=== PATIENT | male | born 1990 ===

== ENCOUNTER 2017-06-30 19:36 | Observation (INO) | payer SELFPAY ==
[2017-06-30 19:45] VITALS: RESP 18
[2017-06-30] MEDS ORDERED: Dexamethasone 4 mg/1 ml IVP STA (20:13)
[2017-06-30] MEDS ORDERED: Sodium Chloride 0.9% 1,000 ML IV STA ×2 (20:13→21:20)
--- NOTE | 2017-06-30 20:32 | ED PDOC ---
HPI:Nausea, Vomiting, Diarrhea Time Seen by Provider: 06/30/17 20:01 Chief Complaint (Nursing): GI Problem Chief Complaint (Provider): Sore throat, fever, nausea, vomiting, diarrhea History Per: Patient History/Exam Limitations: no limitations Additional Complaint(s): Patient is a 27 year old male presenting to the emergency department for a subjective fever and chills that began 5 days ago with associated difficulty swallowing, malaise, tooth and body aches, nausea, vomiting, diarrhea, and a returning sore throat. Notes that he saw his doctor yesterday and took amoxcillion as prescribed, after which his GI symptoms occurred. Denies any sick contacts, recent travel, smoking, or any significant medical and family history. PCP at [facility]. Past Medical History Reviewed: Historical Data, Nursing Documentation, Vital Signs Vital Signs: Last Vital Signs Temp 102.5 F H 06/30/17 19:43 Pulse 106 H 06/30/17 19:43 Resp 18 06/30/17 19:43 BP 111/67 06/30/17 19:43 Pulse Ox 99 06/30/17 19:43 - Medical History PMH: No Chronic Diseases - Surgical History Surgical History: No Surg Hx - Family History Family History: States: No Known Family Hx - Social History Current smoker - smoking cessation education provided: No Ex-Smoker (has not smoked in the last 12 months): No Alcohol: None Drugs: Denies - Home Medications Home Medications: Ambulatory Orders Medication Instructions Recorded Ondansetron ODT [Zofran ODT] 1 odt PO Q6 PRN #20 odt 07/01/17 - Allergies Allergies/Adverse Reactions: Allergies Allergy/AdvReac Type Severity Reaction Status Date / Time No Known Allergies Allergy Verified 06/30/17 20:13 Review of Systems ROS Statement: Except As Marked, All Systems Reviewed And Found Negative (as per HPI) Constitutional: Positive for: Fever, Chills, Malaise, Other (Body ache) ENT: Positive for: Other (toothache and difficulty swallowing) Gastrointestinal: Positive for: Nausea, Vomiting, Diarrhea Physical Exam - Reviewed Nursing Documentation Reviewed: Yes Vital Signs Reviewed: Yes - Physical Exam Appears: Positive for: Non-toxic, In Acute Distress Head Exam: Positive for: ATRAUMATIC, NORMOCEPHALIC Skin: Positive for: Warm, Dry Eye Exam: Positive for: EOMI, PERRL ENT: Positive for: Pharyngeal Erythema, Tonsillar Exudate, Tonsillar Swelling, Other (dry muc membranes) Neck: Positive for: Painless ROM, Supple Cardiovascular/Chest: Positive for: Chest Non Tender, Tachycardia (regular rhythm). Negative for: Murmur Respiratory: Positive for: Normal Breath Sounds. Negative for: Wheezing, Respiratory Distress Gastrointestinal/Abdominal: Positive for: Soft. Negative for: Tenderness, Mass , Distended, Guarding Back: Positive for: Normal Inspection. Negative for: Decreased ROM Extremity: Positive for: Normal ROM. Negative for: Deformity Lymphatic: Positive for: Adenopathy Neurologic/Psych: Positive for: Alert. Negative for: Motor/Sensory Deficits - Laboratory Results Result Diagrams: 06/30/17 20:46 06/30/17 20:48 - ECG O2 Sat by Pulse Oximetry: 99 (RA) Pulse Ox Interpretation: Normal Medical Decision Making Medical Decision Making: Time: 20:29 Initial impression: Tonsillitis and dehydration Labs ED Urine Dipstick Blood Culture IV Insertion Dextrose 1 L, 100 mls/hr Decadron 10 mg IVP Normal Saline 1 L Zofran 8 mg IV Rocephin 1 gm Reevaluation Scribe Attestation: Documented by Meme Mcguire, acting as a scribe for Rubi Valdez MD. Provider Scribe Attestation: All medical record entries made by the Scribe were at my direction and personally dictated by me. I have reviewed the chart and agree that the record accurately reflects my personal performance of the history, physical exam, medical decision making, and the department course for this patient. I have also personally directed, reviewed, and agree with the discharge instructions and disposition. ED OBSERVATION - Observation admission statement Patient is being placed in observation because:: Observation for improvement of symptoms after large dose of IVF - Goals of Observation Goals of observation are:: Symptomatic improvement Hydration - Progress Note Progress Note: 2200 Pt comfortable. Feeling better. 2nd bolus pending 2300 Pt feels better. DW pt findings and plan of care. Advised to continue to rest but increase fluid intake. Disposition - Clinical Impression Clinical Impression: Tonsillitis, Rhabdomyolysis Counseled Patient/Family Regarding: Studies Performed, Diagnosis, Need For Followup - Disposition Disposition Time: 20:30 Condition: IMPROVED
[2017-06-30] MEDS ORDERED: cefTRIAXone (Rocephin) 1 gm Inj ONE (20:50)
[2017-06-30 20:54] LABS: BASO % 0.2 % (0.0-2.0); HEMATOCRIT 43.6 % (35.0-51.0); LYMPH # 0.7 K/uL (1.0-4.3); LYMPH % 17.6 % (20.0-40.0); MEAN CELL VOLUME 87.6 fl (80.0-94.0); MEAN CORPUSCULAR HEMOGLOBIN 29.3 pg (27.0-31.0); MEAN CORPUSCULAR HGB CONC 33.4 g/dL (33.0-37.0); MEAN PLATELET VOLUME 9.5 fl (7.2-11.7); MONO # 0.4 K/uL (0.0-0.8); MONO % 9.2 % (0.0-10.0); NRBC % 0.3 % (0.0-0.0); RED CELL DISTRIBUTION WIDTH 12.7 % (11.5-14.5); WHITE BLOOD COUNT 4.1 K/uL (4.8-10.8)
[2017-06-30 21:01] LABS: VENOUS BLOOD GAS BASE EXCESS 3.6 mmol/L (0.0-2.0); VENOUS BLOOD GAS PCO2 34 mmHg (40-60)
[2017-06-30 21:10] LABS: ALB/GLOB RATIO 1.1 (1.0-2.1); ALKALINE PHOSPHATASE 65 U/L (38-126); ALT/SGPT 47 U/L (21-72); AST/SGOT 92 U/L (17-59); BILIRUBIN,TOTAL 0.7 mg/dl (0.2-1.3); BLOOD UREA NITROGEN 11 mg/dl (9-20); CALCIUM 8.9 mg/dL (8.4-10.2); CARBON DIOXIDE 22 mmol/L (22-30); CHLORIDE 99 mmol/L (98-107); GFR AFRICAN-AMERICAN > 60; GLUCOSE,RANDOM 129 mg/dL (75-110); SODIUM 134 mmol/l (132-148); TOTAL PROTEIN 7.4 G/DL (6.3-8.2)
[2017-07-01 00:29] VITALS: BP 133/69; PULSE 81; TEMP 98.2
[2017-07-03 16:40] VITALS: O2SAT 99
== END 2017-07-01 00:14 | disposition home or self-care (01) ==
LOC: H.ER 19:36 → H.EROBSV 20:29
PROVIDERS: ADMIT Emergency Medicine; ATTEND Emergency Medicine
DX: E86.0 Dehydration (principal); J03.90 Acute tonsillitis, unspecified; M62.82 Rhabdomyolysis; R13.10 Dysphagia, unspecified; R11.2 Nausea with vomiting, unspecified; R19.7 Diarrhea, unspecified
CPT/HCPCS: 80053; 82550; 82803; 85025; 86308; 87040; 87070; 87430; 96361; 96365; 96375; 99284; G0378; J0696; J1100; J2405; J7040; J7042